=== PATIENT | male | born 1980 | race Caucasian/White ===

== ENCOUNTER 2017-12-11 11:08 | Inpatient (IN) | payer MEDICAID ==
[~2017-12-11] VITALS: Ht 200.7 cm; Wt 79.0 kg
[~2017-12-11 11:08] MED LIST: ETOMIDATE 40 MG/20 ML ONE; MIDAZOLAM 1 MG/ML, 5ML ONE; PROPOFOL 10 MG/ML, 100ML IV ONE; ROCURONIUM 10 MG/ML,10ML ONE; SUCCINYLCHOLINE 20 MG/ML, 10ML ONE; VECURONIUM 10 MG ONE
[2017-12-11] MEDS ORDERED: SODIUM CHLORIDE 0.9% 1,000 ML IV ONE (11:09)
[2017-12-11] MEDS ORDERED: DEXAMETHASONE 4 MG/ML, 1ML IVPush ONE (11:30)
[2017-12-11] MEDS ORDERED: SODIUM CHLORIDE 0.9% 1,000ML IVBOLUS ONE ×2 (11:30→21:30)
[2017-12-11] MEDS ORDERED: SODIUM CHLORIDE FLUSH 10ML SYR IVF ONE (11:30)
[2017-12-11] MEDS ORDERED: TRANEXAMIC ACID 100 MG/ML, 10ML ONE (11:38)
[2017-12-11] MEDS ORDERED: DEXAMETHASONE 4 MG/ML, 5ML ONE (11:40)
[2017-12-11 11:52] LABS: ALBUMIN 3.6 g/dL (3.4-5.0); ANION GAP 11 mmol/L (5-15); CALCIUM 9.8 mg/dL (8.5-10.1); CHLORIDE 102 mmol/L (98-107); CREATININE 0.91 mg/dL (0.7-1.3)
[2017-12-11 11:53] LABS: INTERNATIONAL NORMALIZED RATIO 1.02 (0.93-1.1); PROTHROMBIN TIME 10.5 Seconds (9.6-11.5)
[2017-12-11 11:56] LABS: BASOPHILS # (AUTO) 0.01 x10^3/uL (0-0.1); BASOPHILS % (AUTO) 0 % (0-1); EOSINOPHILS # (AUTO) 0.12 x10^3/uL (0-0.4); EOSINOPHILS % (AUTO) 1 % (1-7); LYMPHOCYTES # (AUTO) 1.24 x10^3/uL (1-3.4); LYMPHOCYTES % (AUTO) 12 % (22-44); MD NO; MEAN CORPUSCULAR HEMOGLOBIN 30.3 pg (27.5-34.5); MEAN CORPUSCULAR HGB CONC 33.5 g/dL (33.2-36.2); MEAN CORPUSCULAR VOLUME 90.4 fL (81-97); MEAN PLATELET VOLUME 10.4 fL (7.4-10.4); MONOCYTES % (AUTO) 7 % (2-9); NEUTROPHILS # (AUTO) 8.24 x10^3/uL (1.8-6.8); NEUTROPHILS % (AUTO) 80 % (42-75); PLATELET COUNT 207 x10^3/uL (130-400); RED BLOOD COUNT 3.99 x10^6/uL (4.38-5.82); RED CELL DISTRIBUTION WIDTH 15.5 % (9.4-14.8)
[2017-12-11] MEDS ORDERED: TRANEXAMIC ACID 100 MG/ML, 10ML IVPB ONE (12:00)
[2017-12-11] MEDS ORDERED: PROPOFOL 100 ML IV PRN (12:05)
[2017-12-11] MEDS ORDERED: MIDAZOLAM HCL 25 MG in SODIUM CHLORIDE 0.9% 245 ML IV PRN (12:10)
[2017-12-11] MEDS ORDERED: AMPICILLIN/SULBACTAM 3 GM in SODIUM CHLORIDE 0.9% 100 ML IV ONE (12:30)
[2017-12-11] MEDS ORDERED: MIDAZOLAM 1 MG/ML, 2ML IVPush ONE (12:30)
[2017-12-11] MEDS ORDERED: VECURONIUM 10 MG IVPush ONE (12:30)
[2017-12-11] MEDS ORDERED: SUCCINYLCHOLINE 20 MG/ML, 10ML IVPush ONE (12:30)
[2017-12-11] MEDS ORDERED: ETOMIDATE 20 MG/10 ML IV ONE (12:30)
[2017-12-11 12:46] LABS: ALBUMIN 3.6 g/dL (3.4-5.0); BILIRUBIN, DIRECT 0.2 mg/dL (0.1-0.2)
[2017-12-11 12:47] LABS: BILIRUBIN,INDIRECT 0.3 mg/dL (0.0-2.0); BILIRUBIN,TOTAL 0.5 mg/dL (0.2-1.0); TOTAL PROTEIN 7.4 g/dL (6.4-8.2)
[2017-12-11] MEDS ORDERED: VECURONIUM 50 MG in SODIUM CHLORIDE 0.9% 250 ML IV PRN (12:48)
[2017-12-11] MEDS ORDERED: ONDANSETRON ODT 4 MG PO PRN (13:30)
[2017-12-11] MEDS ORDERED: ENALAPRILAT 1.25 MG/ML, 2ML IVPush PRN (13:30)
[2017-12-11] MEDS ORDERED: LABETALOL 5MG/ML, 20ML IVPush PRN (13:30)
[2017-12-11] MEDS ORDERED: ACETAMINOPHEN 325 MG TABLET PO PRN (13:30)
[2017-12-11] MEDS ORDERED: ONDANSETRON 2MG/ML, 2ML IVPush PRN (13:30)
[2017-12-11] MEDS ORDERED: OMNIPAQUE 350 MG/ML, 100ML BOTTLE ONE (13:38)
[2017-12-11] MEDS ORDERED: PROPOFOL 100 ML IV ONE (13:55)
[2017-12-11] MEDS: NS + 20MEQ KCL 1,000 ML IV SCH (13:56)
[2017-12-11] MEDS: AMPICILLIN/SULBACTAM 3 GM in SODIUM CHLORIDE 0.9% 100 ML IV SCH ×2 (13:57→20:01)
[2017-12-11] MEDS ORDERED: PHARMACY MAY ADJ FOR RENAL FX MC SCH (15:00)
[2017-12-11] MEDS ORDERED: LIDOCAINE-MPF 1%, 2ML ENDO PRN (15:00)
[2017-12-11] MEDS ORDERED: SODIUM CHLORIDE 0.9% 500 ML IV ONE (17:30)
[2017-12-11] MEDS: PROPOFOL 100 ML IV PRN ×2 (17:43→21:27)
[2017-12-11] MEDS: FAMOTIDINE 20 MG/2 ML IVPush SCH (20:51)
[2017-12-11] MEDS ORDERED: SODIUM CHLORIDE 0.9%, 500ML IVBOLUS ONE ×2 (23:00→23:30)
[2017-12-11] MEDS: MIDAZOLAM HCL 50 MG in SODIUM CHLORIDE 0.9% 240 ML IV PRN (23:21)
[2017-12-12] MEDS: NS + 20MEQ KCL 1,000 ML IV SCH (00:02)
[2017-12-12] MEDS: AMPICILLIN/SULBACTAM 3 GM in SODIUM CHLORIDE 0.9% 100 ML IV SCH ×4 (02:21→20:51)
[2017-12-12 03:26] LABS: BASOPHILS # (AUTO) 0.02 x10^3/uL (0-0.1); BASOPHILS % (AUTO) 0 % (0-1); EOSINOPHILS % (AUTO) 0 % (1-7); LYMPHOCYTES # (AUTO) 0.82 x10^3/uL (1-3.4); LYMPHOCYTES % (AUTO) 12 % (22-44); MD NO; MEAN CORPUSCULAR HEMOGLOBIN 31.5 pg (27.5-34.5); MEAN CORPUSCULAR HGB CONC 34.1 g/dL (33.2-36.2); MEAN CORPUSCULAR VOLUME 92.4 fL (81-97); MEAN PLATELET VOLUME 11.5 fL (7.4-10.4); MONOCYTES # (AUTO) 0.45 x10^3/uL (0.2-0.8); MONOCYTES % (AUTO) 7 % (2-9); NEUTROPHILS # (AUTO) 5.64 x10^3/uL (1.8-6.8); NEUTROPHILS % (AUTO) 81 % (42-75); PLATELET COUNT 142 x10^3/uL (130-400); RED BLOOD COUNT 2.75 x10^6/uL (4.38-5.82); RED CELL DISTRIBUTION WIDTH 16.4 % (9.4-14.8)
[2017-12-12 03:31] LABS: ALANINE AMINOTRANSFERASE 11 U/L (12-78); ALBUMIN 2.5 g/dL (3.4-5.0); ANION GAP 9 mmol/L (5-15); CALCIUM 7.9 mg/dL (8.5-10.1); CHLORIDE 115 mmol/L (98-107); CREATININE 0.58 mg/dL (0.7-1.3)
[2017-12-12 03:33] LABS: ALKALINE PHOSPHATASE 41 U/L (45-117); BILIRUBIN,TOTAL 0.3 mg/dL (0.2-1.0); TOTAL PROTEIN 5.3 g/dL (6.4-8.2)
[2017-12-12] MEDS: PROPOFOL 100 ML IV PRN (04:32)
[2017-12-12] MEDS: MIDAZOLAM HCL 50 MG in SODIUM CHLORIDE 0.9% 240 ML IV PRN ×4 (06:22→22:35)
[2017-12-12 07:30] LABS: BASOPHILS # (AUTO) 0.01 x10^3/uL (0-0.1); BASOPHILS % (AUTO) 0 % (0-1); EOSINOPHILS % (AUTO) 0 % (1-7); LYMPHOCYTES % (AUTO) 13 % (22-44); MD NO; MEAN CORPUSCULAR HEMOGLOBIN 30.7 pg (27.5-34.5); MEAN CORPUSCULAR HGB CONC 33.6 g/dL (33.2-36.2); MEAN CORPUSCULAR VOLUME 91.4 fL (81-97); MEAN PLATELET VOLUME 11.2 fL (7.4-10.4); MONOCYTES # (AUTO) 0.72 x10^3/uL (0.2-0.8); MONOCYTES % (AUTO) 8 % (2-9); NEUTROPHILS % (AUTO) 79 % (42-75); PLATELET COUNT 141 x10^3/uL (130-400); RED CELL DISTRIBUTION WIDTH 16.4 % (9.4-14.8)
[2017-12-12] MEDS ORDERED: FUROSEMIDE 20 MG/2 ML IV ONE (08:30)
[2017-12-12] MEDS ORDERED: MAGNESIUM SULFATE PMX 2GM/50ML 50 ML IVPB ONE (09:00)
[2017-12-12] MEDS: FAMOTIDINE 20 MG/2 ML IVPush SCH ×2 (09:29→20:51)
[2017-12-12] MEDS: SENNA/DOCUSATE TABLET PO SCH (09:29)
[2017-12-12] MEDS ORDERED: VECURONIUM 10 MG IVPush ONE (11:00)
[2017-12-12] MEDS: MAGNESIUM SULFATE 1 GM, MVI ADULT 10 ML, THIAMINE 200 MG, FOLIC ACID 1 MG in SODIUM CHL... IV SCH (11:17)
[2017-12-12 11:29] LABS: MICROSCOPIC AUTO
[2017-12-12 11:34] LABS: CULTURE INDICATED? NO
[2017-12-12 11:42] LABS: AMPHETAMINE SCREEN, URINE Negative (Negative); BARBITURATE SCREEN, URINE Negative (Negative); BENZODIAZEPINE SCREEN, URINE Positive (Negative); CANNABINOID SCREEN, URINE Negative (Negative); COCAINE SCREEN, URINE Negative (Negative); METHADONE SCREEN, URINE Negative (Negative); OPIATE SCREEN, URINE Negative (Negative)
[2017-12-12] MEDS ORDERED: GADOBUTROL 7.5 MMOL/7.5 ML PFS ONE (12:12)
[2017-12-13] MEDS: AMPICILLIN/SULBACTAM 3 GM in SODIUM CHLORIDE 0.9% 100 ML IV SCH ×4 (04:06→20:51)
[2017-12-13] MEDS: MIDAZOLAM HCL 50 MG in SODIUM CHLORIDE 0.9% 240 ML IV PRN ×3 (04:07→15:18)
[2017-12-13 04:37] LABS: FIO2 30 %
[2017-12-13 04:50] LABS: BASOPHILS # (AUTO) 0.01 x10^3/uL (0-0.1); BASOPHILS % (AUTO) 0 % (0-1); EOSINOPHILS # (AUTO) 0.01 x10^3/uL (0-0.4); EOSINOPHILS % (AUTO) 0 % (1-7); LYMPHOCYTES # (AUTO) 1.52 x10^3/uL (1-3.4); LYMPHOCYTES % (AUTO) 24 % (22-44); MD NO; MEAN CORPUSCULAR HEMOGLOBIN 31.1 pg (27.5-34.5); MEAN CORPUSCULAR HGB CONC 33.9 g/dL (33.2-36.2); MEAN CORPUSCULAR VOLUME 91.8 fL (81-97); MEAN PLATELET VOLUME 11.7 fL (7.4-10.4); MONOCYTES # (AUTO) 0.49 x10^3/uL (0.2-0.8); MONOCYTES % (AUTO) 8 % (2-9); NEUTROPHILS # (AUTO) 4.43 x10^3/uL (1.8-6.8); NEUTROPHILS % (AUTO) 69 % (42-75); PLATELET COUNT 147 x10^3/uL (130-400); RED BLOOD COUNT 2.56 x10^6/uL (4.38-5.82); RED CELL DISTRIBUTION WIDTH 15.9 % (9.4-14.8)
[2017-12-13] MEDS: MAGNESIUM SULFATE 1 GM, MVI ADULT 10 ML, THIAMINE 200 MG, FOLIC ACID 1 MG in SODIUM CHL... IV SCH (08:17)
[2017-12-13] MEDS: SENNA/DOCUSATE TABLET PO SCH (08:26)
[2017-12-13] MEDS: FAMOTIDINE 20 MG/2 ML IVPush SCH ×2 (08:26→20:51)
[2017-12-13] MEDS: FENTANYL PF 2,500 MCG in SODIUM CHLORIDE 0.9% 200 ML IV PRN (11:12)
[2017-12-13] MEDS: PROPOFOL 100 ML IV PRN ×2 (15:49→20:52)
[2017-12-13] MEDS: LORazepam 2 MG/ML, 1ML IVPush PRN (19:59)
[2017-12-14] MEDS: LORazepam 2 MG/ML, 1ML IVPush PRN ×3 (00:10→19:47)
[2017-12-14] MEDS: AMPICILLIN/SULBACTAM 3 GM in SODIUM CHLORIDE 0.9% 100 ML IV SCH ×4 (03:03→20:49)
[2017-12-14] MEDS: PROPOFOL 100 ML IV PRN ×4 (03:05→20:48)
[2017-12-14 04:35] LABS: BASOPHILS # (AUTO) 0.03 x10^3/uL (0-0.1); BASOPHILS % (AUTO) 0 % (0-1); EOSINOPHILS # (AUTO) 0.05 x10^3/uL (0-0.4); EOSINOPHILS % (AUTO) 1 % (1-7); LYMPHOCYTES # (AUTO) 1.87 x10^3/uL (1-3.4); LYMPHOCYTES % (AUTO) 29 % (22-44); MD NO; MEAN CORPUSCULAR HEMOGLOBIN 30.9 pg (27.5-34.5); MEAN CORPUSCULAR HGB CONC 33.8 g/dL (33.2-36.2); MEAN CORPUSCULAR VOLUME 91.6 fL (81-97); MEAN PLATELET VOLUME 11.3 fL (7.4-10.4); MONOCYTES # (AUTO) 0.67 x10^3/uL (0.2-0.8); MONOCYTES % (AUTO) 10 % (2-9); NEUTROPHILS # (AUTO) 3.88 x10^3/uL (1.8-6.8); NEUTROPHILS % (AUTO) 60 % (42-75); PLATELET COUNT 171 x10^3/uL (130-400); RED BLOOD COUNT 2.83 x10^6/uL (4.38-5.82); RED CELL DISTRIBUTION WIDTH 15.8 % (9.4-14.8)
[2017-12-14 08:06] LABS: ANION GAP 6 mmol/L (5-15); CALCIUM 8.9 mg/dL (8.5-10.1); CHLORIDE 111 mmol/L (98-107); CREATININE 0.68 mg/dL (0.7-1.3)
[2017-12-14] MEDS: SENNA/DOCUSATE TABLET PO SCH (08:14)
[2017-12-14] MEDS: FAMOTIDINE 20 MG/2 ML IVPush SCH ×2 (08:14→20:49)
[2017-12-14] MEDS: MAGNESIUM SULFATE 1 GM, MVI ADULT 10 ML, THIAMINE 200 MG, FOLIC ACID 1 MG in SODIUM CHL... IV SCH (09:43)
[2017-12-14] MEDS: POTASSIUM CHLORIDE 10% 40 MEQ/30 ML UDC PO SCH ×2 (09:50→20:49)
[2017-12-14] MEDS: ZIPRASIDONE 20 MG INJ IM PRN ×2 (10:30→21:47)
[2017-12-15] MEDS: PROPOFOL 100 ML IV PRN ×3 (01:05→22:48)
[2017-12-15] MEDS: ZIPRASIDONE 20 MG INJ IM PRN ×2 (01:22→11:09)
[2017-12-15] MEDS: AMPICILLIN/SULBACTAM 3 GM in SODIUM CHLORIDE 0.9% 100 ML IV SCH ×4 (03:53→20:26)
[2017-12-15 05:18] LABS: MEAN CORPUSCULAR HEMOGLOBIN 31.5 pg (27.5-34.5); MEAN CORPUSCULAR HGB CONC 34.3 g/dL (33.2-36.2); MEAN PLATELET VOLUME 11.7 fL (7.4-10.4); PLATELET COUNT 156 x10^3/uL (130-400); RED BLOOD COUNT 2.49 x10^6/uL (4.38-5.82); RED CELL DISTRIBUTION WIDTH 15.6 % (9.4-14.8)
[2017-12-15 05:44] LABS: BASOPHILS # (AUTO) 0.01 x10^3/uL (0-0.1); BASOPHILS % (AUTO) 0 % (0-1); EOSINOPHILS # (AUTO) 0.08 x10^3/uL (0-0.4); EOSINOPHILS % (AUTO) 2 % (1-7); LYMPHOCYTES # (AUTO) 1.36 x10^3/uL (1-3.4); LYMPHOCYTES % (AUTO) 29 % (22-44); MD SCAN; MONOCYTES # (AUTO) 0.48 x10^3/uL (0.2-0.8); MONOCYTES % (AUTO) 10 % (2-9); NEUTROPHILS # (AUTO) 2.76 x10^3/uL (1.8-6.8); NEUTROPHILS % (AUTO) 59 % (42-75)
[2017-12-15] MEDS ORDERED: MAGNESIUM SULFATE PMX 2GM/50ML 50 ML IV ONE (07:30)
[2017-12-15] MEDS: SENNA/DOCUSATE TABLET PO SCH (07:55)
[2017-12-15] MEDS: FAMOTIDINE 20 MG/2 ML IVPush SCH ×2 (07:55→20:26)
[2017-12-15] MEDS: POTASSIUM CHLORIDE 10% 40 MEQ/30 ML UDC PO SCH ×2 (07:55→20:26)
[2017-12-15] MEDS: MAGNESIUM SULFATE 1 GM, MVI ADULT 10 ML, THIAMINE 200 MG, FOLIC ACID 1 MG in SODIUM CHL... IV SCH (11:04)
[2017-12-15] MEDS: FENTANYL PF 2,500 MCG in SODIUM CHLORIDE 0.9% 200 ML IV PRN (16:00)
[2017-12-16] MEDS: AMPICILLIN/SULBACTAM 3 GM in SODIUM CHLORIDE 0.9% 100 ML IV SCH ×4 (02:23→20:47)
[2017-12-16] MEDS: PROPOFOL 100 ML IV PRN ×2 (03:28→09:02)
[2017-12-16 05:49] LABS: BASOPHILS # (AUTO) 0.02 x10^3/uL (0-0.1); BASOPHILS % (AUTO) 0 % (0-1); EOSINOPHILS # (AUTO) 0.16 x10^3/uL (0-0.4); EOSINOPHILS % (AUTO) 3 % (1-7); LYMPHOCYTES # (AUTO) 1.45 x10^3/uL (1-3.4); LYMPHOCYTES % (AUTO) 26 % (22-44); MD NO; MEAN CORPUSCULAR HEMOGLOBIN 31.3 pg (27.5-34.5); MEAN CORPUSCULAR HGB CONC 34.1 g/dL (33.2-36.2); MEAN CORPUSCULAR VOLUME 91.7 fL (81-97); MEAN PLATELET VOLUME 10.7 fL (7.4-10.4); MONOCYTES # (AUTO) 0.59 x10^3/uL (0.2-0.8); MONOCYTES % (AUTO) 11 % (2-9); NEUTROPHILS # (AUTO) 3.33 x10^3/uL (1.8-6.8); NEUTROPHILS % (AUTO) 60 % (42-75); PLATELET COUNT 190 x10^3/uL (130-400); RED BLOOD COUNT 2.61 x10^6/uL (4.38-5.82); RED CELL DISTRIBUTION WIDTH 15.8 % (9.4-14.8)
[2017-12-16 07:21] LABS: FIO2 30 %
[2017-12-16] MEDS: SENNA/DOCUSATE TABLET PO SCH (07:45)
[2017-12-16] MEDS: POLYETHYLENE GLYCOL 17 GM PACKET PO PRN (07:45)
[2017-12-16] MEDS: FAMOTIDINE 20 MG/2 ML IVPush SCH ×2 (07:45→20:47)
[2017-12-16 08:24] LABS: ALANINE AMINOTRANSFERASE 14 U/L (12-78); ALBUMIN 2.6 g/dL (3.4-5.0); ANION GAP 8 mmol/L (5-15); CHLORIDE 110 mmol/L (98-107); CREATININE 0.73 mg/dL (0.7-1.3)
[2017-12-16 08:27] LABS: ALKALINE PHOSPHATASE 53 U/L (45-117); BILIRUBIN,TOTAL 0.3 mg/dL (0.2-1.0); TOTAL PROTEIN 6.2 g/dL (6.4-8.2)
[2017-12-16] MEDS: MVI ADULT 10 ML, THIAMINE 200 MG, FOLIC ACID 1 MG in SODIUM CHLORIDE 0.45% 1,000 ML IV SCH (09:00)
[2017-12-16] MEDS: MAGNESIUM SULFATE 1 GM, MVI ADULT 10 ML, THIAMINE 200 MG, FOLIC ACID 1 MG in SODIUM CHL... IV SCH (09:13)
[2017-12-16] MEDS: LORazepam 2 MG/ML, 1ML IVPush PRN (20:47)
[2017-12-17] MEDS ORDERED: FENTANYL PF 100 MCG/2ML ONE ×2 (00:25→04:50)
[2017-12-17 04:22] LABS: FIO2 RA %
[2017-12-17 04:31] LABS: PROTHROMBIN TIME 10.4 Seconds (9.6-11.5)
[2017-12-17] MEDS: AMPICILLIN/SULBACTAM 3 GM in SODIUM CHLORIDE 0.9% 100 ML IV SCH ×4 (04:31→21:07)
[2017-12-17 04:32] LABS: ALANINE AMINOTRANSFERASE 14 U/L (12-78); ALBUMIN 2.8 g/dL (3.4-5.0); ANION GAP 10 mmol/L (5-15); CALCIUM 9.2 mg/dL (8.5-10.1); CHLORIDE 105 mmol/L (98-107); CREATININE 0.54 mg/dL (0.7-1.3)
[2017-12-17 04:35] LABS: ALKALINE PHOSPHATASE 53 U/L (45-117); BILIRUBIN,TOTAL 0.3 mg/dL (0.2-1.0); TOTAL PROTEIN 6.6 g/dL (6.4-8.2); TRIGLYCERIDES 115 mg/dL (50-200)
[2017-12-17 04:48] LABS: BASOPHILS # (AUTO) 0.03 x10^3/uL (0-0.1); BASOPHILS % (AUTO) 0 % (0-1); EOSINOPHILS # (AUTO) 0.19 x10^3/uL (0-0.4); EOSINOPHILS % (AUTO) 3 % (1-7); LYMPHOCYTES # (AUTO) 1.44 x10^3/uL (1-3.4); LYMPHOCYTES % (AUTO) 23 % (22-44); MD NO; MEAN CORPUSCULAR HEMOGLOBIN 31.7 pg (27.5-34.5); MEAN CORPUSCULAR HGB CONC 34.7 g/dL (33.2-36.2); MEAN CORPUSCULAR VOLUME 91.5 fL (81-97); MEAN PLATELET VOLUME 10.2 fL (7.4-10.4); MONOCYTES # (AUTO) 0.55 x10^3/uL (0.2-0.8); MONOCYTES % (AUTO) 9 % (2-9); NEUTROPHILS # (AUTO) 3.95 x10^3/uL (1.8-6.8); NEUTROPHILS % (AUTO) 64 % (42-75); PLATELET COUNT 233 x10^3/uL (130-400); RED BLOOD COUNT 2.81 x10^6/uL (4.38-5.82); RED CELL DISTRIBUTION WIDTH 15.4 % (9.4-14.8)
[2017-12-17] MEDS: FENTANYL PF 100 MCG/2ML IVPush PRN ×3 (04:54→19:16)
[2017-12-17] MEDS ORDERED: MAGNESIUM SULFATE PMX 2GM/50ML 50 ML IV ONE ×2 (05:00→07:30)
[2017-12-17] MEDS ORDERED: LIDOCAINE 1%-EPI 1:100K, 30ML ONE (07:00)
[2017-12-17] MEDS ORDERED: OXYMETAZOLINE NASAL SPRAY 0.05%, 15ML ONE (07:00)
[2017-12-17] MEDS ORDERED: BACITRACIN OINT 500U/GM, 15 GM ONE (07:00)
[2017-12-17] MEDS ORDERED: REMIFENTANIL 1 MG ONE (08:37)
[2017-12-17] MEDS ORDERED: ONDANSETRON 2MG/ML, 2ML ONE (08:45)
[2017-12-17] MEDS ORDERED: LIDOCAINE 1%-EPI 1:100K, 30ML INFIL ONE (08:56)
[2017-12-17] MEDS: SENNA/DOCUSATE TABLET PO SCH (09:00)
[2017-12-17] MEDS ORDERED: hydrALAzine 20 MG/ML, 1ML IV PRN (09:00)
[2017-12-17] MEDS ORDERED: MEPERIDINE/PF 25MG/0.5ML IVPush PRN (09:00)
[2017-12-17] MEDS ORDERED: ALBUTEROL SULFATE 2.5 MG/3 ML NPPB PRN (09:00)
[2017-12-17] MEDS ORDERED: ONDANSETRON 2MG/ML, 2ML IV PRN (09:00)
[2017-12-17] MEDS ORDERED: FENTANYL PF 100 MCG/2ML IV PRN (09:00)
[2017-12-17] MEDS: MVI ADULT 10 ML, THIAMINE 200 MG, FOLIC ACID 1 MG in SODIUM CHLORIDE 0.45% 1,000 ML IV SCH (09:00)
[2017-12-17] MEDS ORDERED: LABETALOL 5MG/ML, 20ML IV PRN (09:00)
[2017-12-17] MEDS ORDERED: ACETAMINOPHEN 325 MG TABLET PO PRN (09:00)
[2017-12-17] MEDS: FAMOTIDINE 20 MG/2 ML IVPush SCH ×2 (09:51→21:00)
[2017-12-17] MEDS: LORazepam 2 MG/ML, 1ML IVPush PRN ×2 (12:43→21:16)
[2017-12-17] MEDS ORDERED: OMNIPAQUE 350 MG/ML, 150 ML BOTTLE ONE (16:05)
[2017-12-18 01:48] VITALS: BP 110/78
[2017-12-18] MEDS: FENTANYL PF 100 MCG/2ML IVPush PRN ×5 (03:01→20:50)
[2017-12-18] MEDS: AMPICILLIN/SULBACTAM 3 GM in SODIUM CHLORIDE 0.9% 100 ML IV SCH ×4 (03:01→22:02)
[2017-12-18 06:11] LABS: BASOPHILS # (AUTO) 0.02 x10^3/uL (0-0.1); BASOPHILS % (AUTO) 0 % (0-1); EOSINOPHILS # (AUTO) 0.16 x10^3/uL (0-0.4); EOSINOPHILS % (AUTO) 3 % (1-7); LYMPHOCYTES # (AUTO) 1.58 x10^3/uL (1-3.4); LYMPHOCYTES % (AUTO) 26 % (22-44); MD NO; MEAN CORPUSCULAR HEMOGLOBIN 31.3 pg (27.5-34.5); MEAN CORPUSCULAR HGB CONC 34.4 g/dL (33.2-36.2); MEAN PLATELET VOLUME 10.4 fL (7.4-10.4); MONOCYTES # (AUTO) 0.51 x10^3/uL (0.2-0.8); MONOCYTES % (AUTO) 9 % (2-9); NEUTROPHILS # (AUTO) 3.73 x10^3/uL (1.8-6.8); NEUTROPHILS % (AUTO) 62 % (42-75); PLATELET COUNT 279 x10^3/uL (130-400); RED BLOOD COUNT 3.17 x10^6/uL (4.38-5.82); RED CELL DISTRIBUTION WIDTH 15.2 % (9.4-14.8)
[2017-12-18 06:23] LABS: CHLORIDE 100 mmol/L (98-107)
[2017-12-18 06:38] LABS: ALANINE AMINOTRANSFERASE 15 U/L (12-78); ALBUMIN 3.1 g/dL (3.4-5.0); ALKALINE PHOSPHATASE 55 U/L (45-117); ANION GAP 9 mmol/L (5-15); BILIRUBIN,TOTAL 0.5 mg/dL (0.2-1.0); CALCIUM 9.9 mg/dL (8.5-10.1); TOTAL PROTEIN 6.9 g/dL (6.4-8.2)
[2017-12-18 07:33] VITALS: BP 106/73
[2017-12-18] MEDS: FAMOTIDINE 20 MG/2 ML IVPush SCH ×2 (09:56→20:50)
[2017-12-18] MEDS: SENNA/DOCUSATE TABLET PO SCH (09:56)
[2017-12-18] MEDS: MVI ADULT 10 ML, THIAMINE 200 MG, FOLIC ACID 1 MG in SODIUM CHLORIDE 0.45% 1,000 ML IV SCH (11:42)
[2017-12-18 15:54] VITALS: BP 97/61
[2017-12-18 20:19] VITALS: BP 111/66
[2017-12-18] MEDS: LORazepam 2 MG/ML, 1ML IVPush PRN (22:02)
[2017-12-19 01:02] VITALS: BP 130/90
[2017-12-19] MEDS: LORazepam 2 MG/ML, 1ML IVPush PRN ×2 (01:12→20:15)
[2017-12-19] MEDS: AMPICILLIN/SULBACTAM 3 GM in SODIUM CHLORIDE 0.9% 100 ML IV SCH ×4 (03:20→23:13)
[2017-12-19 05:15] LABS: BASOPHILS # (AUTO) 0.03 x10^3/uL (0-0.1); BASOPHILS % (AUTO) 0 % (0-1); EOSINOPHILS # (AUTO) 0.12 x10^3/uL (0-0.4); EOSINOPHILS % (AUTO) 2 % (1-7); LYMPHOCYTES # (AUTO) 1.51 x10^3/uL (1-3.4); LYMPHOCYTES % (AUTO) 26 % (22-44); MD NO; MEAN CORPUSCULAR HEMOGLOBIN 31.4 pg (27.5-34.5); MEAN CORPUSCULAR HGB CONC 34.2 g/dL (33.2-36.2); MEAN CORPUSCULAR VOLUME 91.8 fL (81-97); MEAN PLATELET VOLUME 9.8 fL (7.4-10.4); MONOCYTES # (AUTO) 0.56 x10^3/uL (0.2-0.8); MONOCYTES % (AUTO) 10 % (2-9); NEUTROPHILS # (AUTO) 3.51 x10^3/uL (1.8-6.8); NEUTROPHILS % (AUTO) 61 % (42-75); PLATELET COUNT 287 x10^3/uL (130-400); RED BLOOD COUNT 3.19 x10^6/uL (4.38-5.82); RED CELL DISTRIBUTION WIDTH 15.3 % (9.4-14.8)
[2017-12-19 05:26] LABS: ALANINE AMINOTRANSFERASE 18 U/L (12-78); ALBUMIN 3.1 g/dL (3.4-5.0); ANION GAP 7 mmol/L (5-15); CALCIUM 9.9 mg/dL (8.5-10.1); CHLORIDE 105 mmol/L (98-107); CREATININE 0.74 mg/dL (0.7-1.3)
[2017-12-19 05:28] LABS: ALKALINE PHOSPHATASE 58 U/L (45-117); BILIRUBIN,TOTAL 0.3 mg/dL (0.2-1.0); TOTAL PROTEIN 7.1 g/dL (6.4-8.2)
[2017-12-19 08:06] VITALS: BP 119/76
[2017-12-19] MEDS: FAMOTIDINE 20 MG/2 ML IVPush SCH ×2 (09:12→20:15)
[2017-12-19] MEDS: FENTANYL PF 100 MCG/2ML IVPush PRN ×3 (09:12→21:55)
[2017-12-19] MEDS: SENNA/DOCUSATE TABLET PO SCH (09:13)
[2017-12-19] MEDS: MVI ADULT 10 ML, THIAMINE 200 MG, FOLIC ACID 1 MG in SODIUM CHLORIDE 0.45% 1,000 ML IV SCH (10:22)
[2017-12-19] MEDS ORDERED: MIDAZOLAM 1 MG/ML, 2ML ONE (11:50)
[2017-12-19] MEDS ORDERED: FENTANYL PF 250 MCG/5ML ONE (11:50)
[2017-12-19] MEDS ORDERED: LIDOCAINE 4% TOPICAL SOLUTION 50 ML ONE (13:21)
[2017-12-19] MEDS ORDERED: LIDOCAINE 1%-EPI 1:100K, 30ML ONE (13:21)
[2017-12-19] MEDS ORDERED: EPINEPHRINE TOPICAL SOLN 1 MG/ML, 30ML ONE (13:21)
[2017-12-19] MEDS ORDERED: NEOSPORIN OINT, 15GM ONE (13:21)
[2017-12-19] MEDS ORDERED: EPINEPHRINE 1 MG/ML, 1ML ONE (13:22)
[2017-12-19] MEDS ORDERED: KETAMINE 10 MG/ML, 20ML ONE (13:29)
[2017-12-19] MEDS ORDERED: OXYMETAZOLINE NASAL SPRAY 0.05%, 15ML ONE (13:30)
[2017-12-19] MEDS ORDERED: PHENYLEPHRINE 10 MG/ML ONE (14:10)
[2017-12-19] MEDS ORDERED: ESMOLOL 100 MG/10 ML ONE (14:10)
[2017-12-19] MEDS ORDERED: SUCCINYLCHOLINE 20 MG/ML, 10ML ONE (14:10)
[2017-12-19] MEDS ORDERED: ROCURONIUM 10 MG/ML,10ML ONE (14:10)
[2017-12-19] MEDS ORDERED: PROPOFOL 10 MG/ML, 20ML ONE (14:10)
[2017-12-19] MEDS ORDERED: CEFAZOLIN 1,000 MG ONE (14:10)
[2017-12-19] MEDS ORDERED: SUGAMMADEX 200 MG/2 ML IVPush ONE (15:26)
[2017-12-20] MEDS: FENTANYL PF 100 MCG/2ML IVPush PRN ×5 (00:40→23:12)
[2017-12-20] MEDS: LORazepam 2 MG/ML, 1ML IVPush PRN ×2 (02:57→17:30)
[2017-12-20 04:54] LABS: ANION GAP 8 mmol/L (5-15); CALCIUM 9.5 mg/dL (8.5-10.1); CHLORIDE 104 mmol/L (98-107); CREATININE 0.74 mg/dL (0.7-1.3); TRIGLYCERIDES 96 mg/dL (50-200)
[2017-12-20 04:55] LABS: BASOPHILS # (AUTO) 0.03 x10^3/uL (0-0.1); BASOPHILS % (AUTO) 0 % (0-1); EOSINOPHILS # (AUTO) 0.03 x10^3/uL (0-0.4); EOSINOPHILS % (AUTO) 0 % (1-7); LYMPHOCYTES % (AUTO) 17 % (22-44); MD NO; MEAN CORPUSCULAR HEMOGLOBIN 31.2 pg (27.5-34.5); MEAN CORPUSCULAR VOLUME 91.6 fL (81-97); MEAN PLATELET VOLUME 9.7 fL (7.4-10.4); MONOCYTES # (AUTO) 0.74 x10^3/uL (0.2-0.8); MONOCYTES % (AUTO) 10 % (2-9); NEUTROPHILS # (AUTO) 5.44 x10^3/uL (1.8-6.8); NEUTROPHILS % (AUTO) 72 % (42-75); PLATELET COUNT 268 x10^3/uL (130-400); RED BLOOD COUNT 3.02 x10^6/uL (4.38-5.82); RED CELL DISTRIBUTION WIDTH 15.1 % (9.4-14.8)
[2017-12-20 05:13] LABS: INTERNATIONAL NORMALIZED RATIO 1.08 (0.93-1.1); PROTHROMBIN TIME 11.2 Seconds (9.6-11.5)
[2017-12-20] MEDS: AMPICILLIN/SULBACTAM 3 GM in SODIUM CHLORIDE 0.9% 100 ML IV SCH ×4 (05:14→23:19)
[2017-12-20] MEDS: SENNA/DOCUSATE TABLET PO SCH (08:14)
[2017-12-20] MEDS: FAMOTIDINE 20 MG/2 ML IVPush SCH ×2 (08:14→20:06)
[2017-12-20] MEDS: MVI ADULT 10 ML, THIAMINE 200 MG, FOLIC ACID 1 MG in SODIUM CHLORIDE 0.45% 1,000 ML IV SCH (09:33)
[2017-12-20] MEDS ORDERED: LIDOCAINE-MPF 2%, 2ML ONE (09:43)
[2017-12-20] MEDS ORDERED: LIDOCAINE GEL 2%, 5ML ONE (09:48)
[2017-12-20] MEDS ORDERED: NALOXONE 1 MG/ML, 2ML ONE (09:53)
[2017-12-20] MEDS ORDERED: MIDAZOLAM 1 MG/ML, 5ML ONE (09:53)
[2017-12-20] MEDS ORDERED: FLUMAZENIL 0.1 MG/1 ML, 5ML ONE (09:53)
[2017-12-20] MEDS ORDERED: FENTANYL PF 100 MCG/2ML ONE (09:53)
[2017-12-20 18:48] VITALS: BP 101/65
[2017-12-21 01:18] VITALS: BP 102/66
[2017-12-21] MEDS: LORazepam 2 MG/ML, 1ML IVPush PRN ×3 (02:07→21:43)
[2017-12-21 04:49] LABS: BASOPHILS # (AUTO) 0.02 x10^3/uL (0-0.1); BASOPHILS % (AUTO) 0 % (0-1); EOSINOPHILS # (AUTO) 0.11 x10^3/uL (0-0.4); EOSINOPHILS % (AUTO) 2 % (1-7); LYMPHOCYTES # (AUTO) 1.45 x10^3/uL (1-3.4); LYMPHOCYTES % (AUTO) 21 % (22-44); MD NO; MEAN CORPUSCULAR HEMOGLOBIN 31.1 pg (27.5-34.5); MEAN CORPUSCULAR HGB CONC 34.1 g/dL (33.2-36.2); MEAN CORPUSCULAR VOLUME 91.3 fL (81-97); MEAN PLATELET VOLUME 9.6 fL (7.4-10.4); MONOCYTES # (AUTO) 0.71 x10^3/uL (0.2-0.8); MONOCYTES % (AUTO) 10 % (2-9); NEUTROPHILS # (AUTO) 4.69 x10^3/uL (1.8-6.8); NEUTROPHILS % (AUTO) 67 % (42-75); PLATELET COUNT 254 x10^3/uL (130-400); RED BLOOD COUNT 2.81 x10^6/uL (4.38-5.82); RED CELL DISTRIBUTION WIDTH 15.8 % (9.4-14.8)
[2017-12-21 04:59] LABS: ANION GAP 9 mmol/L (5-15); CALCIUM 9.4 mg/dL (8.5-10.1); CHLORIDE 105 mmol/L (98-107); CREATININE 0.66 mg/dL (0.7-1.3)
[2017-12-21] MEDS: FENTANYL PF 100 MCG/2ML IVPush PRN ×5 (05:07→23:40)
[2017-12-21] MEDS: AMPICILLIN/SULBACTAM 3 GM in SODIUM CHLORIDE 0.9% 100 ML IV SCH ×2 (05:07→13:27)
[2017-12-21 07:58] VITALS: BP 103/57
[2017-12-21] MEDS ORDERED: MAGNESIUM SULFATE PMX 4GM/100M 100 ML IV ONE (08:00)
[2017-12-21] MEDS: SENNA/DOCUSATE TABLET PO SCH (09:07)
[2017-12-21] MEDS: FAMOTIDINE 20 MG/2 ML IVPush SCH (09:07)
[2017-12-21 14:26] VITALS: BP 104/68
[2017-12-21] MEDS: MVI ADULT 10 ML, THIAMINE 200 MG, FOLIC ACID 1 MG in SODIUM CHLORIDE 0.45% 1,000 ML IV SCH (16:33)
[2017-12-21 18:54] VITALS: BP 110/72
[2017-12-22 00:03] VITALS: BP 117/76
[2017-12-22] MEDS: LORazepam 2 MG/ML, 1ML IVPush PRN (01:42)
[2017-12-22] MEDS: FENTANYL PF 100 MCG/2ML IVPush PRN ×5 (03:39→19:35)
[2017-12-22 04:29] LABS: BASOPHILS # (AUTO) 0.03 x10^3/uL (0-0.1); BASOPHILS % (AUTO) 1 % (0-1); EOSINOPHILS # (AUTO) 0.16 x10^3/uL (0-0.4); EOSINOPHILS % (AUTO) 3 % (1-7); LYMPHOCYTES # (AUTO) 1.39 x10^3/uL (1-3.4); LYMPHOCYTES % (AUTO) 23 % (22-44); MD NO; MEAN CORPUSCULAR HEMOGLOBIN 30.8 pg (27.5-34.5); MEAN CORPUSCULAR HGB CONC 33.7 g/dL (33.2-36.2); MEAN CORPUSCULAR VOLUME 91.5 fL (81-97); MEAN PLATELET VOLUME 9.3 fL (7.4-10.4); MONOCYTES % (AUTO) 8 % (2-9); NEUTROPHILS # (AUTO) 3.98 x10^3/uL (1.8-6.8); NEUTROPHILS % (AUTO) 66 % (42-75); PLATELET COUNT 285 x10^3/uL (130-400); RED BLOOD COUNT 2.85 x10^6/uL (4.38-5.82); RED CELL DISTRIBUTION WIDTH 15.5 % (9.4-14.8)
[2017-12-22 07:33] VITALS: BP 125/79
[2017-12-22] MEDS: SENNA/DOCUSATE TABLET PO SCH (07:40)
[2017-12-22 13:43] VITALS: BP 127/78
[2017-12-22] MEDS ORDERED: HYDROcodone/APAP 7.5-325MG/15ML UDC ONE (16:14)
[2017-12-22] MEDS: HYDROcodone/APAP 7.5-325MG/15ML UDC PO PRN ×2 (16:16→20:25)
[2017-12-22] MEDS: MVI ADULT 10 ML, THIAMINE 200 MG, FOLIC ACID 1 MG in SODIUM CHLORIDE 0.45% 1,000 ML IV SCH (16:16)
[2017-12-22 19:38] VITALS: BP 109/74
[2017-12-22 21:36] VITALS: BP 111/74
[2017-12-23] MEDS: HYDROcodone/APAP 7.5-325MG/15ML UDC PO PRN ×5 (00:18→22:01)
[2017-12-23 00:24] VITALS: BP 114/75
[2017-12-23] MEDS: FENTANYL PF 100 MCG/2ML IVPush PRN ×4 (04:04→19:55)
[2017-12-23 04:40] LABS: ALBUMIN 2.8 g/dL (3.4-5.0); ANION GAP 2 mmol/L (5-15); CALCIUM 9.9 mg/dL (8.5-10.1); CHLORIDE 106 mmol/L (98-107)
[2017-12-23 04:41] LABS: BASOPHILS # (AUTO) 0.02 x10^3/uL (0-0.1); BASOPHILS % (AUTO) 0 % (0-1); EOSINOPHILS # (AUTO) 0.19 x10^3/uL (0-0.4); EOSINOPHILS % (AUTO) 3 % (1-7); LYMPHOCYTES # (AUTO) 1.64 x10^3/uL (1-3.4); LYMPHOCYTES % (AUTO) 23 % (22-44); MD NO; MEAN CORPUSCULAR HGB CONC 33.8 g/dL (33.2-36.2); MEAN CORPUSCULAR VOLUME 91.9 fL (81-97); MEAN PLATELET VOLUME 9.9 fL (7.4-10.4); MONOCYTES # (AUTO) 0.57 x10^3/uL (0.2-0.8); MONOCYTES % (AUTO) 8 % (2-9); NEUTROPHILS # (AUTO) 4.84 x10^3/uL (1.8-6.8); NEUTROPHILS % (AUTO) 67 % (42-75); PLATELET COUNT 288 x10^3/uL (130-400); RED BLOOD COUNT 2.94 x10^6/uL (4.38-5.82); RED CELL DISTRIBUTION WIDTH 15.6 % (9.4-14.8)
[2017-12-23 04:44] LABS: ALANINE AMINOTRANSFERASE 10 U/L (12-78); ALKALINE PHOSPHATASE 58 U/L (45-117); BILIRUBIN,TOTAL 0.4 mg/dL (0.2-1.0); CREATININE 0.69 mg/dL (0.7-1.3); TOTAL PROTEIN 6.5 g/dL (6.4-8.2); TRIGLYCERIDES 85 mg/dL (50-200)
[2017-12-23 08:00] VITALS: BP 103/67
[2017-12-23] MEDS: SENNA/DOCUSATE TABLET PO SCH (08:24)
[2017-12-23 14:00] VITALS: BP 94/62
[2017-12-23] MEDS: MVI ADULT 10 ML, THIAMINE 200 MG, FOLIC ACID 1 MG in SODIUM CHLORIDE 0.45% 1,000 ML IV SCH (16:46)
[2017-12-23 19:01] VITALS: BP 99/62
[2017-12-24] MEDS: FENTANYL PF 100 MCG/2ML IVPush PRN ×6 (00:21→21:53)
[2017-12-24 02:44] VITALS: BP 96/62
[2017-12-24 04:25] LABS: BASOPHILS # (AUTO) 0.04 x10^3/uL (0-0.1); BASOPHILS % (AUTO) 1 % (0-1); EOSINOPHILS # (AUTO) 0.16 x10^3/uL (0-0.4); EOSINOPHILS % (AUTO) 3 % (1-7); LYMPHOCYTES # (AUTO) 1.28 x10^3/uL (1-3.4); LYMPHOCYTES % (AUTO) 23 % (22-44); MD NO; MEAN CORPUSCULAR HEMOGLOBIN 30.3 pg (27.5-34.5); MEAN CORPUSCULAR HGB CONC 33.1 g/dL (33.2-36.2); MEAN CORPUSCULAR VOLUME 91.5 fL (81-97); MEAN PLATELET VOLUME 9.6 fL (7.4-10.4); MONOCYTES # (AUTO) 0.49 x10^3/uL (0.2-0.8); MONOCYTES % (AUTO) 9 % (2-9); NEUTROPHILS # (AUTO) 3.68 x10^3/uL (1.8-6.8); NEUTROPHILS % (AUTO) 65 % (42-75); PLATELET COUNT 280 x10^3/uL (130-400); RED BLOOD COUNT 2.91 x10^6/uL (4.38-5.82); RED CELL DISTRIBUTION WIDTH 15.4 % (9.4-14.8)
[2017-12-24] MEDS: HYDROcodone/APAP 7.5-325MG/15ML UDC PO PRN ×3 (07:03→19:50)
[2017-12-24 07:12] VITALS: BP 116/67
[2017-12-24] MEDS: SENNA/DOCUSATE TABLET PO SCH (09:13)
[2017-12-24] MEDS: POLYETHYLENE GLYCOL 17 GM PACKET PO PRN (09:13)
[2017-12-24] MEDS ORDERED: MAGNESIUM SULFATE 3 GM in SODIUM CHLORIDE 0.9% 100 ML IV ONE (11:30)
[2017-12-24 12:01] LABS: ANION GAP 6 mmol/L (5-15); CALCIUM 10.2 mg/dL (8.5-10.1); CHLORIDE 105 mmol/L (98-107); CREATININE 0.69 mg/dL (0.7-1.3)
[2017-12-24 15:52] VITALS: BP 103/77
[2017-12-24 19:15] VITALS: BP 111/69
[2017-12-25] MEDS: HYDROcodone/APAP 7.5-325MG/15ML UDC PO PRN ×4 (01:04→21:09)
[2017-12-25 01:09] VITALS: BP 118/74
[2017-12-25] MEDS: FENTANYL PF 100 MCG/2ML IVPush PRN (04:18)
[2017-12-25 04:38] LABS: BASOPHILS # (AUTO) 0.02 x10^3/uL (0-0.1); BASOPHILS % (AUTO) 0 % (0-1); EOSINOPHILS # (AUTO) 0.17 x10^3/uL (0-0.4); EOSINOPHILS % (AUTO) 3 % (1-7); LYMPHOCYTES # (AUTO) 1.21 x10^3/uL (1-3.4); LYMPHOCYTES % (AUTO) 19 % (22-44); MD NO; MEAN CORPUSCULAR HEMOGLOBIN 30.6 pg (27.5-34.5); MEAN CORPUSCULAR HGB CONC 33.4 g/dL (33.2-36.2); MEAN CORPUSCULAR VOLUME 91.7 fL (81-97); MEAN PLATELET VOLUME 10.1 fL (7.4-10.4); MONOCYTES # (AUTO) 0.46 x10^3/uL (0.2-0.8); MONOCYTES % (AUTO) 7 % (2-9); NEUTROPHILS # (AUTO) 4.46 x10^3/uL (1.8-6.8); NEUTROPHILS % (AUTO) 71 % (42-75); PLATELET COUNT 256 x10^3/uL (130-400); RED BLOOD COUNT 2.99 x10^6/uL (4.38-5.82); RED CELL DISTRIBUTION WIDTH 15.6 % (9.4-14.8)
[2017-12-25 04:47] LABS: CHLORIDE 106 mmol/L (98-107); CREATININE 0.77 mg/dL (0.7-1.3)
[2017-12-25 05:14] LABS: ANION GAP 3 mmol/L (5-15)
[2017-12-25 07:20] VITALS: BP 124/83
[2017-12-25] MEDS: SENNA/DOCUSATE TABLET PO SCH (10:30)
[2017-12-25] MEDS: SODIUM CHLORIDE 0.9% 1,000 ML IV SCH ×2 (10:30→17:30)
[2017-12-25] MEDS: BISACODYL 10 MG SUPP PR PRN ×2 (10:30→21:09)
[2017-12-25 12:11] VITALS: BP 114/74
[2017-12-25] MEDS ORDERED: LORazepam 1MG TABLET PO PRN (14:00)
[2017-12-25 18:40] VITALS: BP 112/71
[2017-12-26] VITALS (10 sets, daily range): BP systolic 79–105; BP diastolic 41–70
[2017-12-26] MEDS: SODIUM CHLORIDE 0.9% 1,000 ML IV SCH ×3 (01:10→17:10)
[2017-12-26] MEDS: HYDROcodone/APAP 7.5-325MG/15ML UDC PO PRN ×4 (01:10→22:26)
[2017-12-26 05:04] LABS: BASOPHILS # (AUTO) 0.02 x10^3/uL (0-0.1); BASOPHILS % (AUTO) 0 % (0-1); EOSINOPHILS # (AUTO) 0.12 x10^3/uL (0-0.4); EOSINOPHILS % (AUTO) 2 % (1-7); LYMPHOCYTES # (AUTO) 1.34 x10^3/uL (1-3.4); LYMPHOCYTES % (AUTO) 20 % (22-44); MD NO; MEAN CORPUSCULAR HEMOGLOBIN 31.3 pg (27.5-34.5); MEAN CORPUSCULAR HGB CONC 33.9 g/dL (33.2-36.2); MEAN CORPUSCULAR VOLUME 92.3 fL (81-97); MEAN PLATELET VOLUME 10.6 fL (7.4-10.4); MONOCYTES # (AUTO) 0.44 x10^3/uL (0.2-0.8); MONOCYTES % (AUTO) 7 % (2-9); NEUTROPHILS # (AUTO) 4.79 x10^3/uL (1.8-6.8); NEUTROPHILS % (AUTO) 71 % (42-75); PLATELET COUNT 246 x10^3/uL (130-400); RED BLOOD COUNT 2.78 x10^6/uL (4.38-5.82); RED CELL DISTRIBUTION WIDTH 15.6 % (9.4-14.8)
[2017-12-26 05:10] LABS: ALANINE AMINOTRANSFERASE 10 U/L (12-78); ALBUMIN 2.8 g/dL (3.4-5.0); ANION GAP 1 mmol/L (5-15); CALCIUM 9.3 mg/dL (8.5-10.1); CHLORIDE 105 mmol/L (98-107); CREATININE 0.65 mg/dL (0.7-1.3)
[2017-12-26 05:13] LABS: ALKALINE PHOSPHATASE 73 U/L (45-117); BILIRUBIN,TOTAL 0.7 mg/dL (0.2-1.0); TOTAL PROTEIN 6.4 g/dL (6.4-8.2); TRIGLYCERIDES 77 mg/dL (50-200)
[2017-12-26] MEDS ORDERED: MAGNESIUM SULFATE PMX 2GM/50ML 50 ML IV ONE (08:00)
[2017-12-26] MEDS: SENNA/DOCUSATE TABLET PO SCH (08:25)
[2017-12-26 14:38] LABS: BASOPHILS # (AUTO) 0.02 x10^3/uL (0-0.1); BASOPHILS % (AUTO) 0 % (0-1); EOSINOPHILS # (AUTO) 0.11 x10^3/uL (0-0.4); EOSINOPHILS % (AUTO) 2 % (1-7); LYMPHOCYTES # (AUTO) 0.99 x10^3/uL (1-3.4); LYMPHOCYTES % (AUTO) 19 % (22-44); MD NO; MEAN CORPUSCULAR HEMOGLOBIN 31.2 pg (27.5-34.5); MEAN CORPUSCULAR HGB CONC 33.7 g/dL (33.2-36.2); MEAN CORPUSCULAR VOLUME 92.5 fL (81-97); MEAN PLATELET VOLUME 10.7 fL (7.4-10.4); MONOCYTES # (AUTO) 0.41 x10^3/uL (0.2-0.8); MONOCYTES % (AUTO) 8 % (2-9); NEUTROPHILS % (AUTO) 71 % (42-75); PLATELET COUNT 187 x10^3/uL (130-400); RED BLOOD COUNT 2.22 x10^6/uL (4.38-5.82); RED CELL DISTRIBUTION WIDTH 15.1 % (9.4-14.8)
[2017-12-26 15:45] LABS: D-DIMER (DIC) 2.8 ug/mlFEU (0.00-0.52)
[2017-12-27 00:46] LABS: MEAN CORPUSCULAR HEMOGLOBIN 31.1 pg (27.5-34.5); MEAN CORPUSCULAR HGB CONC 34.2 g/dL (33.2-36.2); MEAN CORPUSCULAR VOLUME 90.7 fL (81-97); MEAN PLATELET VOLUME 10.5 fL (7.4-10.4); PLATELET COUNT 194 x10^3/uL (130-400); RED BLOOD COUNT 2.45 x10^6/uL (4.38-5.82); RED CELL DISTRIBUTION WIDTH 15.3 % (9.4-14.8)
[2017-12-27 00:54] LABS: ALANINE AMINOTRANSFERASE 9 U/L (12-78); ALBUMIN 2.3 g/dL (3.4-5.0); ANION GAP 3 mmol/L (5-15); CALCIUM 8.3 mg/dL (8.5-10.1); CHLORIDE 108 mmol/L (98-107); CREATININE 0.61 mg/dL (0.7-1.3)
[2017-12-27 00:56] LABS: ALKALINE PHOSPHATASE 52 U/L (45-117); BILIRUBIN,TOTAL 0.7 mg/dL (0.2-1.0); TOTAL PROTEIN 5.1 g/dL (6.4-8.2)
[2017-12-27] MEDS: SODIUM CHLORIDE 0.9% 1,000 ML IV SCH ×3 (01:04→17:58)
[2017-12-27 01:10] VITALS: BP 105/70
[2017-12-27 01:30] LABS: BASOPHILS # (AUTO) 0.03 x10^3/uL (0-0.1); BASOPHILS % (AUTO) 0 % (0-1); EOSINOPHILS # (AUTO) 0.11 x10^3/uL (0-0.4); EOSINOPHILS % (AUTO) 2 % (1-7); LYMPHOCYTES # (AUTO) 1.28 x10^3/uL (1-3.4); LYMPHOCYTES % (AUTO) 18 % (22-44); MD SCAN; MONOCYTES # (AUTO) 0.43 x10^3/uL (0.2-0.8); MONOCYTES % (AUTO) 6 % (2-9); NEUTROPHILS # (AUTO) 5.26 x10^3/uL (1.8-6.8); NEUTROPHILS % (AUTO) 74 % (42-75)
[2017-12-27] MEDS: HYDROcodone/APAP 7.5-325MG/15ML UDC PO PRN ×5 (04:10→23:54)
[2017-12-27 04:50] LABS: BASOPHILS # (AUTO) 0.02 x10^3/uL (0-0.1); BASOPHILS % (AUTO) 0 % (0-1); EOSINOPHILS % (AUTO) 1 % (1-7); LYMPHOCYTES # (AUTO) 1.37 x10^3/uL (1-3.4); LYMPHOCYTES % (AUTO) 20 % (22-44); MD NO; MEAN CORPUSCULAR HEMOGLOBIN 30.8 pg (27.5-34.5); MEAN CORPUSCULAR VOLUME 90.4 fL (81-97); MONOCYTES # (AUTO) 0.48 x10^3/uL (0.2-0.8); MONOCYTES % (AUTO) 7 % (2-9); NEUTROPHILS # (AUTO) 4.82 x10^3/uL (1.8-6.8); NEUTROPHILS % (AUTO) 71 % (42-75); PLATELET COUNT 194 x10^3/uL (130-400); RED BLOOD COUNT 2.59 x10^6/uL (4.38-5.82); RED CELL DISTRIBUTION WIDTH 15.5 % (9.4-14.8)
[2017-12-27 07:04] VITALS: BP 96/63
[2017-12-27] MEDS: SENNA/DOCUSATE TABLET PO SCH (09:00)
[2017-12-27] MEDS ORDERED: FUROSEMIDE 20 MG/2 ML IV ONE (14:30)
[2017-12-27 14:58] VITALS: BP 90/57
[2017-12-27] MEDS ORDERED: MAGNESIUM SULFATE PMX 2GM/50ML 50 ML IV ONE (17:30)
[2017-12-27 18:48] VITALS: BP 124/79
[2017-12-28 00:22] VITALS: BP 105/67
[2017-12-28 04:40] LABS: CHLORIDE 105 mmol/L (98-107)
[2017-12-28 04:41] LABS: MEAN CORPUSCULAR HEMOGLOBIN 31.2 pg (27.5-34.5); MEAN CORPUSCULAR HGB CONC 34.4 g/dL (33.2-36.2); MEAN CORPUSCULAR VOLUME 90.7 fL (81-97); MEAN PLATELET VOLUME 11.4 fL (7.4-10.4); PLATELET COUNT 166 x10^3/uL (130-400); RED BLOOD COUNT 2.51 x10^6/uL (4.38-5.82); RED CELL DISTRIBUTION WIDTH 15.2 % (9.4-14.8)
[2017-12-28 04:47] LABS: ALANINE AMINOTRANSFERASE 10 U/L (12-78); ALBUMIN 2.5 g/dL (3.4-5.0); ALKALINE PHOSPHATASE 54 U/L (45-117); ANION GAP 3 mmol/L (5-15); BILIRUBIN,TOTAL 0.7 mg/dL (0.2-1.0); CALCIUM 8.8 mg/dL (8.5-10.1); CREATININE 0.63 mg/dL (0.7-1.3); TOTAL PROTEIN 5.7 g/dL (6.4-8.2)
[2017-12-28] MEDS: SODIUM CHLORIDE 0.9% 1,000 ML IV SCH ×2 (05:51→13:00)
[2017-12-28 05:54] LABS: BASOPHILS # (AUTO) 0.04 x10^3/uL (0-0.1); BASOPHILS % (AUTO) 1 % (0-1); EOSINOPHILS # (AUTO) 0.15 x10^3/uL (0-0.4); EOSINOPHILS % (AUTO) 2 % (1-7); LYMPHOCYTES # (AUTO) 1.21 x10^3/uL (1-3.4); LYMPHOCYTES % (AUTO) 16 % (22-44); MD SCAN; MONOCYTES # (AUTO) 0.81 x10^3/uL (0.2-0.8); MONOCYTES % (AUTO) 10 % (2-9); NEUTROPHILS # (AUTO) 5.56 x10^3/uL (1.8-6.8); NEUTROPHILS % (AUTO) 72 % (42-75)
[2017-12-28 07:32] VITALS: BP 109/62
[2017-12-28] MEDS: SENNA/DOCUSATE TABLET PO SCH (08:40)
[2017-12-28] MEDS: HYDROcodone/APAP 7.5-325MG/15ML UDC PO PRN ×2 (08:42→13:03)
== END 2017-12-28 13:38 | disposition short-term general hospital (02) | DRG 3 ==
LOC: ED 12:22 → EDIP 12:44 → CCU 13:22 → 3NW 12-17 20:13 → CCU 12-19 16:38 → ICU 12-20 03:56 → 3NW 12-20 16:00 → CCU 12-26 13:52 → 3NW 12-26 19:02
PROVIDERS: ADMIT Internal Medicine; ATTEND Internal Medicine
PROC: 5A1955Z Respiratory Ventilation, Greater than 96 Consecutive Hours (ICD-10-PCS; 2017-12-11)
PROC: 0BH17EZ Insertion of Endotracheal Airway into Trachea, Via Natural or Artificial Opening (ICD-10-PCS; 2017-12-11)
PROC: 0T9B70Z Drainage of Bladder with Drainage Device, Via Natural or Artificial Opening (ICD-10-PCS; 2017-12-12)
PROC: 0CJS8ZZ Inspection of Larynx, Via Natural or Artificial Opening Endoscopic (ICD-10-PCS; 2017-12-16)
PROC: 0CB7XZX Excision of Tongue, External Approach, Diagnostic (ICD-10-PCS; 2017-12-17)
PROC: 0JB40ZZ Excision of Right Neck Subcutaneous Tissue and Fascia, Open Approach (ICD-10-PCS; 2017-12-19)
PROC: 0B110F4 Bypass Trachea to Cutaneous with Tracheostomy Device, Open Approach (ICD-10-PCS; 2017-12-19)
PROC: 0DH63UZ Insertion of Feeding Device into Stomach, Percutaneous Approach (ICD-10-PCS; principal; 2017-12-20)
PROC: 30233N1 Transfusion of Nonautologous Red Blood Cells into Peripheral Vein, Percutaneous Approach (ICD-10-PCS; 2017-12-26)
DX: C02.9 Malignant neoplasm of tongue, unspecified (principal); J96.00 Acute respiratory failure, unspecified whether with hypoxia or hypercapnia; E43 Unspecified severe protein-calorie malnutrition; D62 Acute posthemorrhagic anemia; Z99.11 Dependence on respirator [ventilator] status; Z68.1 Body mass index [BMI] 19.9 or less, adult; E83.42 Hypomagnesemia; E83.52 Hypercalcemia; E87.6 Hypokalemia; I10 Essential (primary) hypertension; N36.8 Other specified disorders of urethra; F17.210 Nicotine dependence, cigarettes, uncomplicated; R22.1 Localized swelling, mass and lump, neck; F10.10 Alcohol abuse, uncomplicated; J98.8 Other specified respiratory disorders
CPT/HCPCS: 31500; 36415; 36600; 51702; 74230; 99291; 99292; S0028; 49440; 70487; 70491; 70543; 71045; 71260; 74177; 76770; 80048; 80053; 80076; 80307; 81001; 82040; 82397; 82803; 83605; 83735; 83970; 84100; 84478; 85014; 85018; 85025; 85049; 85379; 85384; 85610; 85730; 86850; 86900; 86923; 87070; 87081; 87205; 88304; 88305; 88329; 88331; 93005; 94002; 94003; 96361; 96374; 96375; 99156; 99157; A9585; C1725; G0378; J0171; J0295; J0690; J1100; J2250; J2405; J2704; J3010; J3411; J3475; J3480; J3486; J3490; Q9967; C1729; C1751; C1769; J0330; J1940; J2060; J2310; J2370; J7030; J7040; J7050; P9016